=== PATIENT | female | born 1945 | race Caucasian/White ===

== ENCOUNTER 2024-12-10 15:13 | Emergency (ER) | payer MEDICARE, OTHER, SELFPAY ==
[2024-12-10 15:21] VITALS: BP 104/75; PULSE 89; RESP 18; TEMP 36.4; O2SAT 95; BMI 46.1
--- NOTE | 2024-12-10 15:37 | RAD_ITS ---
PROCEDURE: RIGHT SHOULDER MIN 2 VIEWS 12/10/2024 REASON FOR EXAM: INJURY/PAIN TECHNIQUE: Procedure Code: RADSH Modality: DX Procedure: SHOULDER MIN 2 VIEWS Laterality: Right COMPARISON: None. FINDINGS: No acute fracture or dislocation. Alignment is anatomic. 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 No unusual mineralization. No appreciable soft tissue swelling. RAD/Shoulder min 2 Views IMPRESSION: No acute fracture or dislocation. Mild glenohumeral and AC joint arthrosis. Reading Location: [id number]
--- NOTE | 2024-12-10 15:38 | RAD_ITS ---
PROCEDURE: KNEE 4 OR MORE VIEWS 12/10/2024 REASON FOR EXAM: INJURY/PAIN TECHNIQUE: Procedure Code: RADKN Modality: DX Procedure: KNEE 4 OR MORE VIEWS Laterality: FINDINGS: Left hip arthroplasty. No evidence of acute complication. No knee joint effusion. RAD/Knee 4 or More Views IMPRESSION: Intact left knee arthroplasty. Reading Location: [id number]
--- NOTE | 2024-12-10 15:38 | RAD_ITS ---
PROCEDURE: HIP, UNI W/ PELVIS 2-3 VIEWS 12/10/2024 REASON FOR EXAM: INJURY/PAIN TECHNIQUE: Procedure Code: RAD Modality: DX Procedure: HIP, UNI W/ PELVIS 2-3 VIEWS Laterality: FINDINGS: Status post bilateral hip arthroplasties. A sacral stimulator is present. No evidence of acute complication. RAD/HIP, UNI W/ Pelvis 2-3 Views IMPRESSION: Intact bilateral hip arthroplasties. Reading Location: [id number]
--- NOTE | 2024-12-10 15:40 | RAD_ITS ---
PROCEDURE: KNEE 4 OR MORE VIEWS 12/10/2024 REASON FOR EXAM: INJURY TECHNIQUE: Procedure Code: RADKN Modality: DX Procedure: KNEE 4 OR MORE VIEWS COMPARISON: None RAD/Knee 4 or More Views IMPRESSION: Status post total right knee arthropathy. No acute fracture or dislocations. No large joint effusion. Moderate diffuse soft tissue edema. Reading Location: [id number]
--- NOTE | 2024-12-10 15:40 | EDS_ITS ---
HPI HPI - Fall History of Present Illness Chief Complaint: Fall Informant: patient Occured/Mechanism Occurred: Today Mechanism/Context: Yes same level fall Usually ambulates: Walker Pain/Injury Pain Location: upper extremity (Right shoulder and arm) and lower extremity (Right hip and knee) Quality of Pain: Dull Worsened by: Nothing Relieved by: Nothing Narrative Narrative: Patient presents after a fall that occurred today. Patient states she normally walks with a walker and she was attempting to go up 1 step when if front of her walker went forward and caught the back legs of her walker. Patient states she fell onto her right side. Patient denies any loss of consciousness. Patient does not think she hit her head. Patient states her pain is mainly over the right shoulder, arm, hip, and knee. Patient describes her pain as dull. Patient states nothing makes it worse and nothing makes it better. Patient admits to chronic pain in her neck and back. PFSH PFSH Home Medications ?Medication ?Instructions ?Recorded ?Last Taken ?Type hydrocodone-acetaminophen 5-325mg 1 tab PO Q6H PRN PRN Pain 3 days 12/10/24 Un known Rx 5mg-325mg #10 TABLETS Allergy/AdvReac Type Severity Reaction Status Date / Time bee venom protein (honey Allergy EDEMA Verified 12/10/24 17:23 bee) (bee sting) cefazolin (From Ancef) Allergy hypotension Verified 12/10/24 17:23 clindamycin Allergy rash Verified 12/10/24 17:23 codeine Allergy ADDICTION Verified 12/10/24 17:23 Iodinated Contrast Media Allergy Rash Verified 12/10/24 17:23 (IVP dye) latex Allergy itching Verified 12/10/24 17:23 Sulfa (Sulfonamide Allergy edema Verified 12/10/24 17:23 Antibiotics) tuna oil Allergy throat Verified 12/10/24 17:23 swelling amoxicillin (From Augmentin) AdvReac VOMITING Verified 12/10/24 17:23 clavulanic acid (From AdvReac VOMITING Verified 12/10/24 17:23 Augmentin) duloxetine (From Cymbalta) AdvReac HEADACHE Verified 12/10/24 17:23 gabapentin AdvReac CONFUSION Verified 12/10/24 17:23 [id number] Reductase AdvReac RASH Verified 12/10/24 17:23 Inhibitor Family History no significant family his Surgical History (Updated 12/10/24 @ 17:19 by Wendi Agarwal) H/O right heart catheterization H/O: hysterectomy Social History Smoking Status: Never smoker ROS ROS ED Constitutional Constitutional ED: Denies chills or fever(s) Eyes Eyes: Denies blurry vision or change in vision ENT ENT ED: Denies rhinorrhea or sore throat Cardiovascular Cardiovascular: Denies chest pain or palpitations Respiratory/Chest Respiratory/Chest: Denies cough or dyspnea Gastrointestinal Gastrointestinal: Denies nausea or vomiting Genitourinary Genitourinary ED: Denies dysuria or hematuria Musculoskeletal Musculoskeletal: Reports back pain and neck pain Integumentary Denies abscess or rash Neurologic Neurologic: Denies headache(s) or weakness Allergic/Immunologic Allergic/Immunologic ED: Denies mouth swelling or urticaria EXAM Physical Exam Const Vital Signs: 12/10/24 15:21 12/10/24 17:15 Temperature 97.5 F L Temperature Source Oral Pulse Rate 89 Respiratory Rate 18 Respiratory Effort Normal Non-Labored Respiratory Depth Normal Respiratory Pattern Normal Blood Pressure 104/75 Blood Pressure Mean 84 Pulse Ox 95 Oxygen Delivery Method Room Air Room Air Positive well nourished and well developed General Appearance ED: well developed and NAD HEENT Reports normocephalic atraumatic Neck full ROM Neck Narrative: There is mild tenderness of the right cervical paraspinal muscles and right trapezius muscle. There is no midline tenderness. There is no bony crepitance or step-off. Chest Wall palpation of chest normal GI non-tender and non-distended Extremity Extremity Narrative: There is tenderness over the bilateral knees, bilateral hips, right shoulder, and right upper arm. There is no deformity noted. Range of motion was slightly limited in all motions of the knees bilaterally and right shoulder secondary to pain. There is no pain with internal and external rotation of lower extremities. There are no deformities noted. There is no ecchymosis noted. Neuro oriented x3, CN's II-XII intact bilaterally, moves all extremities, no focal motor deficits and no sensory deficits noted [place] Coma Scale: document GCS findings Spontaneous Obeys Commands Oriented 15 Sensorium / Orientation: alert Motor Exam: strength 5/5 throughout Psych mental status grossly normal MDM MDM MDM Narrative Medical decision making narrative: Differential diagnosis includes proximal humerus fracture, shoulder dislocation, hip fracture, dislocation, knee sprain, and fracture. X-rays of the right shoulder will be obtained to assess for fracture. X-rays of the right hip and pelvis will be obtained to assess for fracture. X-rays of the bilateral knees will be obtained to assess for fracture. X-rays of the right ankle will be obtained to assess for fracture. Radiography Diagnostic Testing: Clinical Impression(s) from Imaging Studies Shoulder X-Ray 12/10/24 15:37 IMPRESSION: No acute fracture or dislocation. Mild glenohumeral and AC joint arthrosis. Reading Location: [facility] Hip/Pelvis X-Ray 12/10/24 15:38 IMPRESSION: Intact bilateral hip arthroplasties. Reading Location: [address] Knee X-Ray 12/10/24 15:38 IMPRESSION: Intact left knee arthroplasty. Reading Location: [address] Knee X-Ray 12/10/24 15:40 IMPRESSION: Status post total right knee arthropathy. No acute fracture or dislocations. No large joint effusion. Moderate diffuse soft tissue edema. Reading Location: [facility] Ankle X-Ray 12/10/24 15:55 IMPRESSION: No acute fracture or dislocation. Reading Location: [facility] X-rays of the right ankle were obtained. There are 3 views. On my independent interpretation, there is no acute fracture or dislocation noted. Radiologist also interpreted the x-rays and agrees. X-rays of the right knee were obtained. There are 4 views. On my independent interpretation, there is no acute fracture noted. There is no dislocation noted. The knee prosthesis is intact. Radiologist also interpreted the x-rays and agrees. X-rays of the left knee were obtained. There are 4 views. On my independent interpretation, there is no acute fracture noted. There is no dislocation. The knee prosthesis is intact. Radiologist also interpreted the x-rays and agrees. X-rays of the right hip were obtained. There are 3 views. On my independent interpretation, there is no acute fracture. There are bilateral total hip prosthesis noted. There is no dislocation noted. Radiologist also interpreted the x-rays and agrees. X-rays of the right shoulder were obtained. There are 4 views. On my independent interpretation, there is no acute fracture noted. There is no dislocation noted. Radiologist also interpreted the x-rays and agrees. Treatment and Re-Evaluation Narrative: Patient was given a dose of [place] here. Patient was advised of her findings. Patient was able to ambulate here in the emergency department with a walker without difficulty. Patient was instructed to ice and elevate her knees and shoulder. Patient was given a prescription for a short course of [place]. Patient was instructed to follow-up with her primary care physician in 5 to 7 days. Patient understood and was agreeable with the plan. All questions were answered. Discharge Plan Triage Chief Complaint: Fall ED Provider: Wilfred Workman Dx/Rx/DC Orders Clinical Impression: Fall, Contusion of right knee, initial encounter, Contusion of right hip region, Contusion of right shoulder region Instructions: ED Soft Tissue Contusion, ED Hip Contusion Prescriptions: New hydrocodone-acetaminophen 5-325 mg tablet 1 tab PO Q6H PRN PRN (Reason: Pain) 3 Days Qty: 10 0RF Primary Care Provider: YOKASTA WHEELER Referrals: YOKASTA WHEELER [Other] - 5-7 Days Print Language: Moz[place] Disposition Disposition: Home, Self Care
--- NOTE | 2024-12-10 15:55 | RAD_ITS ---
PROCEDURE: RIGHT ANKLE MIN 3 VIEWS 12/10/2024 REASON FOR EXAM: INJURY/PAIN TECHNIQUE: Procedure Code: RADANK Modality: DX Procedure: ANKLE MIN 3 VIEWS Laterality: Right COMPARISON: None. FINDINGS: No acute fracture or dislocation. Alignment appears anatomic. Preserved joint spaces. Large patient body habitus with no appreciable focal soft tissue swelling. RAD/Ankle min 3 Views IMPRESSION: No acute fracture or dislocation. Reading Location: [id number]
[2024-12-10] MEDS: HYDROcodone Bitartrate/Apap 5/325 Tablet PO (16:30)
[2024-12-10 18:36] VITALS: BP 160/80; PULSE 67; RESP 18; TEMP 36.4; O2SAT 100
== END 2024-12-10 18:38 | disposition home or self-care (01) ==
PROVIDERS: Emergency Provider Emergency Medicine; Visit Provider Emergency Medicine
DX: S80.01XA Contusion of right knee, initial encounter (principal); Z90.710 Acquired absence of both cervix and uterus; W18.30XA Fall on same level, unspecified, initial encounter; S40.011A Contusion of right shoulder, initial encounter; S70.01XA Contusion of right hip, initial encounter
CPT/HCPCS: 73030; 73502; 73564; 73610; 99284